=== PATIENT | male | born 1965 | race Caucasian/White ===

== ENCOUNTER 2022-11-29 13:14 | Outpatient (REF) | payer OTHER, SELFPAY ==
[2022-11-29 14:34] LABS: Anion Gap 12.3 mmol/L (3-11); BUN 23 mg/dL (7-18); CO2 27.7 mmol/L (21.0-32.0); CREATININE 1.3 mg/dL (0.70-1.30); Calcium 10.5 mg/dL (8.5-10.1); Chloride 100 mmol/L (98-107); Estimated GFR 64.47 (mL/min/1.73m2); Glucose 115 mg/dL (74-106); Potassium 4.8 mmol/L (3.5-5.1); Sodium 140 mmol/L (136-145)
== END 2022-11-29 13:15 | disposition home or self-care (01) ==
LOC: LBN 13:14
PROVIDERS: Visit Provider Physician Assistant Medical
DX: I10 Essential (primary) hypertension (principal)
CPT/HCPCS: 80048

== ENCOUNTER 2023-01-29 09:31 | Emergency (ER) | payer OTHER, SELFPAY ==
[2023-01-29 09:41] VITALS: BP 154/99; PULSE 97; RESP 18; TEMP 37.1; O2SAT 98
--- NOTE | 2023-01-29 10:00 | DI.RAD_ITS ---
Exam(s) XR ANKLE RT COMPLETE EXAM: XR ANKLE RT COMPLETE CLINICAL HISTORY: ankle pain and swelling. TECHNIQUE: 2D digital imaging was performed. COMPARISON: No exams were available for comparison FINDINGS: 3 views No evidence of acute fracture nor widening of the ankle mortise. However, there is an ankle joint ef fusion noted. Talar dome unremarkable. Enthesophyte noted posteriorly at the Achilles insertion on the posterior calcaneus. No malleolar fr actures evident. No osseous tarsal coalition. IMPRESSION: Ankle joint effusion noted. No obvious acute fractures. DATA REPOSITORY: RADIATION DOSE DELIVERED:
[2023-01-29 10:32] LABS: Abs Immature Grans 0.02 10^3/uL (0.0-0.06); Absolute Basophil Count 0.02 10^3/uL (0.0-0.2); Absolute Monocyte Count 0.66 10^3/uL (0.1-0.8); Absolute Neutrophil Count 5.52 10^3/uL (1.2-6.7); Basophils % 0.3; Eosinophils % 1.3; HCT 40.6 % (40.0-50.0); HGB 13.9 g/dL (13.5-17.5); Immature Grans % 0.3; Lymphocytes % 14.8; MCH 30.5 pg (27.0-33.0); MCHC 34.2 % (32.0-36.0); MCV 89 fL (80-95); MPV 9.1 fL (8.0-11.0); Monocytes % 8.9; Neutrophils % 74.4; Platelet Count 228 10^3/uL (130-400); RBC 4.55 10^6/uL (4.36-5.78); RDW 11.8 % (11.8-14.1); RDW-SD 38.2 fL; WBC 7.42 10^3/uL (4.4-10.8)
[2023-01-29 10:35] LABS: ESR 13 mm/hr (0-20)
--- NOTE | 2023-01-29 10:39 | ED.GENADUL_ITS ---
Discharge Plan Disposition Patient Disposition: Home Condition: Stable Discharge Details Clinical Impression: Acute joint effusion, Ankle pain Primary Care Provider: None,None ED Provider: Lucrecia Tellez Home Meds and New Rx's Prescriptions: Continued losartan 50 mg Tablet 50 mg PO BID Discharge Instructions Additional Instructions: Use your boot Take ibuprofen 600 mg every 8 hours with food for the next 5 days Take Tylenol 650 mg every 4-6 hours for breakthrough pain I am giving you several tablets of oxycodone that you may use sparingly Return earlier should you have fever, chills, redness, or with any new or worsening complaints Follow-up with orthopedics next week for reassessment Stand Alone Forms: Work Release Referrals: Luis Antonio Easley MD [ [facility] STAFF PHYSICIAN] - Discharge Data Discharge Date/Time-TO BE ENTERED AT DEPARTURE: 01/29/23 12:48 Medical Decision Making 57-year-old male with swelling to ankle, x-ray shows evidence of effusion, labs with elevated CRP but the remainder of labs do not show evidence of significant abnormality, specifically no leukocytosis and he is able to flex and extend his ankle minimally Lower suspicion for septic joint, however recommended arthrocentesis, patient consented, unfortunately on 2 attempts I was unsuccessful and I therefore called orthopedics for assessment, patient has declined any additional intervention at this time and will follow-up with orthopedics in the outpatient setting, placed in a boot We will place on nonsteroidals Patient is aware that we are unable to completely exclude infectious etiology of patient's complaints He will take the nonsteroidals regularly for the next 5 days and return immedi ately should he has redness, worsening pain, fever or chills Work note was supplied discharged home in stable condition with stable vitals HPI General Date/Time Provider Initiated Documentation: 01/29/23 09:56 . HPI Narrative: This 57-year-old gentleman with history of hypertension presents with report of right ankle swelling and pain and swelling for the past week. Denies any fever or chills. States he has had this intermittently in the past. Denies any new trauma. Denies any regular alcohol consumption for diet high in red meat or protein. States pain is exacerbated with ambulation. Denies any additional complaints at this time. Denies chest pain or shortness of breath. Related Data Home Medications Medication Instructions Recorded Confirmed losartan 50 mg tablet 50 mg PO BID 01/29/23 01/29/23 Allergies Allergy/AdvReac Type Severity Reaction Status Date / Time No Known Allergies Allergy Unverified 01/29/23 09:46 General Stated Complaint: Orthopedic YUN: 4 PFSH All Active Problems (Updated 01/29/23 @ 12:29 by Luis Antonio Easley MD) Right ankle effusion (Acute) Acute joint effusion (Acute) Ankle pain (Acute) Social History Smoking/Tobacco Use Status: Never Smoking risk assessment performed?: Yes Drug use: Never Substance use type: does not use Do you feel safe at home: Yes Do you feel safe in your relationship?: Yes Exam Narrative Exam Narrative: 57-year-old male, in no acute distress with swelling to his right ankle and foot, neurovascularly intact, no overlying erythema, no crepitus, neurovascularly intact, no calf swelling or tenderness appreciated Course Vital Signs Vital signs: Vital Signs Temperature 37.1 C 01/29/23 09:41 Pulse 97 H 01/29/23 09:41 Respiratory Rate 18 01/29/23 09:41 Blood Pressure 154/99 H 01/29/23 09:41 Pulse Oximetry 98 01/29/23 09:41 Temperature 37.1 C 01/29/23 09:41 Temperature Source Oral 01/29/23 09:41 Pulse 97 H 01/29/23 09:41 Respiratory Rate 18 01/29/23 09:41 Respiratory Effort Normal 01/29/23 09:45 Blood Pressure 154/99 H 01/29/23 09:41 Blood Pressure Position Sitting 01/29/23 09:41 Pulse Oximetry 98 01/29/23 09:41 Oxygen Delivery Method Room Air 01/29/23 09:41 Oxygen Flow Rate 0 01/29/23 09:41 Pain Level 3 01/29/23 09:41 Lab/Test Results Lab/Test Results: Laboratory Tests Range/Units 01/29/23 01/29/23 10:24 10:24 WBC (4.4-10.8) 10^3/uL 7.42 RBC (4.36-5.78) 10^6/uL 4.55 Hgb (13.5-17.5) g/dL 13.9 Hct (40.0-50.0) % 40.6 MCV (80-95) fL 89 MCH (27.0-33.0) pg 30.5 MCHC (32.0-36.0) % 34.2 RDW (11.8-14.1) % 11.8 Plt Count (130-400) 10^3/uL 228 MPV (8.0-11.0) fL 9.1 Immature Gran % 0.3 Neutrophils % 74.4 Lymphocytes % 14.8 Monocytes % 8.9 Eosinophils % 1.3 Basophils % 0.3 Nucleated RBC % (0.0-0.3) % 0.0 Absolute Neutrophils (1.2-6.7) 10^3/uL 5.52 Absolute Lymphocytes (1.2-3.4) 10^3/uL 1.10 L Absolute Monocytes (0.1-0.8) 10^3/uL 0.66 Absolute Eosinophils (0.0-0.7) 10^3/uL 0.10 Absolute Basophils (0.0-0.2) 10^3/uL 0.02 ESR (0-20) mm/hr 13
[2023-01-29 10:47] LABS: Uric Acid 7.1 mg/dL (3.5-7.2)
[2023-01-29 11:07] LABS: ALT 22 U/L (16-63); AST 15 U/L (15-37); Albumin 3.7 g/dL (3.4-5.0); Alkaline Phosphatase 67 U/L (46-116); Anion Gap 3.4 mmol/L (3-11); BUN 20 mg/dL (7-18); Bilirubin, Total 0.4 mg/dL (0.2-1.0); CO2 35.6 mmol/L (21.0-32.0); CREATININE 1.3 mg/dL (0.70-1.30); Calcium 9.5 mg/dL (8.5-10.1); Chloride 102 mmol/L (98-107); Estimated GFR 64.47 (mL/min/1.73m2); Glucose 116 mg/dL (74-106); Potassium 4.5 mmol/L (3.5-5.1); Sodium 141 mmol/L (136-145); Total Protein 7.5 g/dL (6.4-8.2)
--- NOTE | 2023-01-29 12:06 | W.ORTHOCONSU ---
Date of service: 01/29/23 Time of Service: 12:29 Assessment and Plan Assessment and plan (1) Right ankle effusion: Status: Acute Assessment and plan: 57-year-old male with about 1 week of right ankle swelling and discomfort probably due to undiagnosed pseudogout Patient with no primary care provider describes about 1 week of atraumatic fairly stable right ankle swelling and discomfort. Has had similar experiences before on this ankle in the contralateral ankle that come and go on their own. Thinks he may have been worked up for gout and had joint aspiration in the past. Comfortable at rest. Not acutely worsening. Nontoxic. Afebrile. Demonstrates moderately good active ankle range of motion without difficulty. Limited mostly due to effusion. Tolerates passive short arc range of motion about the ankle without any notable pain. No erythema or wounds about the ankle except for 2 anterior medial punctures from emergency room attempted aspirations. No proximal streaking. Moderate edema generalized ankle and foot. No specific landmark tenderness. Right ankle x-rays reviewed showing moderate joint effusion, no significant arthrosis, no subcutaneous air or gas WBC normal. CRP elevated. Uric acid normal. Tick panel pending. Discussed with patient and emergency room provider. Unlikely septic arthritis given timeline, no fevers or elevated WBC, and general comfort in appearance of the ankle. Offered aspiration to obtain fluid sample for definitive diagnosis. Patient declines given prior unsuccessful aspirations. Recommend taking it easy on the ankle, elevation, and NSAIDs for discomfort. Follow-up with orthopedics next week for reevaluation. Patient should establish primary care provider for long?term management Counseled regarding signs and symptoms of a worsening problem like septic arthritis. All questions were answered. Patient agrees and understands the treatment plan. PFSH All Active Problems (Updated 01/29/23 @ 12:29 by Luis Antonio Easley MD) Right ankle effusion (Acute) Acute joint effusion (Acute) Ankle pain (Acute) Social History Smoking/Tobacco Use Status: Never Smoking risk assessment performed?: Yes Drug use: Never Substance use type: does not use Do you feel safe at home: Yes Do you feel safe in your relationship?: Yes Results Last Vital Signs Temp 98.8 F 01/29/23 09:41 Pulse 97 H 01/29/23 09:41 Resp 18 01/29/23 09:41 BP 154/99 H 01/29/23 09:41 Pulse Ox 98 01/29/23 09:41 Labs 04/12/23 10:24 01/29/23 10:24 Labs: Laboratory Results - last 24 hr 01/29/23 01/29/23 01/29/23 10:24 10:24 10:24 WBC 7.42 RBC 4.55 Hgb 13.9 Hct 40.6 MCV 89 MCH 30.5 MCHC 34.2 RDW 11.8 Plt Count 228 MPV 9.1 Immature Gran % 0.3 Neutrophils % 74.4 Lymphocytes % 14.8 Monocytes % 8.9 Eosinophils % 1.3 Basophils % 0.3 Nucleated RBC % 0.0 Absolute Neutrophils 5.52 Absolute Lymphocytes 1.10 L Absolute Monocytes 0.66 Absolute Eosinophils 0.10 Absolute Basophils 0.02 ESR 13 Sodium Potassium Chloride Carbon Dioxide Anion Gap BUN Creatinine Est GFR (CKD-EPI 2020) Glucose Uric Acid 7.1 Calcium Total Bilirubin AST ALT Alkaline Phosphatase C-Reactive Protein 7.10 H Total Protein Albumin 01/29/23 10:24 WBC RBC Hgb Hct MCV MCH MCHC RDW Plt Count MPV Immature Gran % Neutrophils % Lymphocytes % Monocytes % Eosinophils % Basophils % Nucleated RBC % Absolute Neutrophils Absolute Lymphocytes Absolute Monocytes Absolute Eosinophils Absolute Basophils ESR Sodium 141 Potassium 4.5 Chloride 102 Carbon Dioxide 35.6 H Anion Gap 3.4 BUN 20 H Creatinine 1.3 Est GFR (CKD-EPI 2020) 64.47 Glucose 116 H Uric Acid Calcium 9.5 Total Bilirubin 0.4 AST 15 ALT 22 Alkaline Phosphatase 67 C-Reactive Protein Total Protein 7.5 Albumin 3.7
--- NOTE | 2023-01-29 14:19 | CMACTNOTE_ITS ---
- If Service Date Differs Date of service: 01/29/23 Time of Service: 14:19 Care Management Activity Note Ricco is seen in the ED for right ankle pain and swelling for the past week. At the request of provider, YASHIRA coordinates a referral to ALINA Rueda, of [facility], t-doc, to assist Ricco in establishing care with a PCP.
[2023-01-30 14:35] LABS: Lyme Ab w Rflx to Lyme Confirm Negative (Negative)
[2023-01-31 16:30] LABS: Anaplasma phagocytophilum Negative (Negative); B. miyamotoi PCR Negative (Negative); Babesia divergens/MO-1 Negative (Negative); Babesia duncani Negative (Negative); Babesia microti Negative (Negative); Ehrlichia chaffeensis Negative (Negative); Ehrlichia ewingii/canis Negative (Negative); Ehrlichia muris eauclairensis Negative (Negative)
--- NOTE | 2023-02-01 08:37 | NUR.NOTE ---
Nursing Note: Accessed chart for [facility] billing purposes.
== END 2023-01-29 12:48 | disposition home or self-care (01) ==
PROVIDERS: Emergency Provider Physician Assistant
DX: M25.471 Effusion, right ankle (principal)
CPT/HCPCS: 29515; 36415; 80053; 85652; 87798; 99283; 73610; 84550; 85025; 86140; 86618; 99284